=== PATIENT | male | born 1955 | race African-American/Black ===

== ENCOUNTER → 2020-04-10 | Outpatient (CLI) | payer BC, OTHER ==
[~2020-04-10] VITALS: Ht 180.3 cm; Wt 89.8 kg
[~2020-04-10] MED LIST: ASA81BEC PO; ATORVASTATIN CA80 MG PO; BIKTARVY 50-201 EACH PO; CHANTIX1 EACH PO; FLEXERIL PO; FLOMAX0.4 MG PO; OMEPRAZOLE40 MG PO; PREGABALIN150 MG PO; SENNA PLUS 8.61 EACH PO; TOPROL XL25 MG PO; TRAMADOL 50 MG50 MG PO
[2020-04-10 13:06] VITALS: BP 107/64
--- NOTE | 2020-04-10 13:39 | NUR ---
Pain Clinic Assessment: 1. History of Osteoarthritis: SPINE History of Rheumatoid Arthritis: Not Applicable 2. Height: 5 ft. 11 in. 180.3 cm. Weight: 198.0 lb. oz. 89.812 kg. Patient's BMI: 27.6 3. Vital Signs: BP: 107/64 Pulse: 66 Resp: 16 Temp: 02 Sat: 94 ECG Mon: 4. Pain Intensity: 9 5. Fall Risk: Dizziness: N Needs help standing or walking: Y Fallen in the last 3 months: Y Fall risk comments: LEFT LEG GIVES OUT 6. Patient on Blood Thinner: None 7. History of Hypertension: Y 8. Opioid Therapy greater than 6 weeks: N Opiate Contract Signed: 9. Risk Assessment Tool Provided: HIGH 10. Functional Assessment Tool: 57/70 11. Recreational Drug Use: Never Drug Type: Tobacco Use: Never Smoker Tobacco Type: Amount or Packs/day: How Many Years: Alcohol Use: No Frequency: Quant:
--- NOTE | 2020-04-11 14:53 | HPC ---
[facility] [address] [place] [address] PAIN MANAGEMENT CONSULTATION Name: ELLIOTT GONSALVES [facility] [id number] Admission: 04/10/20 Attend Phys: Manny Og DO Discharge: Date of : 57 Report #: [id number] THIS REPORT FOR: cc: KIERA HARVEY Physician not on staff Manny Og DO ~ HISTORY OF PRESENT ILLNESS: As you know, the patient is a 64-year-old male who reports longstanding history of low back pain, left lower extremity pain with paresthesias. He states pain began 04/2018. He denies specific injury or trauma. The patient underwent surgery in 2019 at [facility] with fusion from L2 through S1. There was instrumentation. Apparently, he was left with what was believed to be nerve injury causing foot drop on the left. He apparently had lumbar epidural injections prior to surgery, but none were beneficial. He sought evaluation with the pain management service at [facility] and advised that a spinal cord stimulator might be an option for treatment, but they do not offer that procedure at their current location and the patient was subsequently referred to our clinic to discuss this option. The patient indicates his pain is continuous, steady and constant. He describes the pain as burning, shooting, aching, gnawing, throbbing, sharp, stabbing, numbness and tingling. Places current pain score 9/10, daily average at 9/10, worst pain has been is 10/10. The patient states pain is exacerbated with walking, sitting, standing, improves with lying down. He is currently taking Lyrica and tramadol and noting minimal benefit with their use. The patient has undergone physical therapy multiple times, this is prior to and after surgery. He has undergone interventional treatments prior to surgery, but none after surgery. He is continued on medication management for neuropathic pain control. He utilizes an AFO for his left foot due to a drop foot. The patient reports that he has undergone EMG of the lower extremity, but that is not available to us at this point. He has been referred to our service to discuss treatment options for lumbar radicular symptoms, unresolved with surgery and medication management. PAST MEDICAL HISTORY: 1. Rheumatic fever. 2. History of chronic obstructive pulmonary disease. 3. Coronary artery disease. 4. Degenerative joint disease. 5. Osteoarthritis. 6. Chronic lumbar radiculopathy. PAST SURGICAL HISTORY: 1. Drainage of a right upper lung lobe. 2. Right upper lung lobectomy. 3. Port-A-Cath placement. 4. Fusion of the lumbar spine, L2 through S1. 5. Right wrist surgery. [address] [address] PAIN MANAGEMENT CONSULTATION Name: MAJORELLIOTT L Room #: REG [facility] Anika#: [id number] Admission: 04/10/20 Attend Phys: Manny Og DO Discharge: Date of : 57 Report #: [id number] 6. 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 7. Tonsillectomy. 8. Umbilical herniorrhaphy. SOCIAL HISTORY: The patient reports he does not smoke. Denies IV or illicit drug use. Denies any chronic alcohol use. 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 He is on short-term disability. He is not in litigation in regards to pain. He is not receiving workmen's compensation at this time. He is unaccompanied at today's visit. REVIEW OF SYSTEMS: Positive for weight gain, fatigue and weakness, frequent and recurrent headaches, wearing corrective eyewear, nosebleeds, shortness of breath walking or lying flat, heart trouble, chest pain with angina, frequent and recurrent coughs, loss of appetite, nocturia, change of force or stream urination, incontinence and dribbling to urine, sexual difficulty, numbness and tingling sensations, nervousness, depression. All other review of systems negative per 12-point review of systems other than those listed in history of present illness. Pain impact score 57/70, indicating severe interference of daily activities secondary to pain. ALLERGIES: PENICILLINS. CURRENT MEDICATIONS: Chantix as directed, cyclobenzaprine 10 mg once a day, tramadol 50 mg 4 times a day, omeprazole DR 40 mg once a day, tamsulosin 0.4 mg once a day, metoprolol 25 mg once a day, pregabalin 150 mg 2 tabs b.i.d., Senokot 1 tab per day, Biktarvy 50/200/25 once a day, atorvastatin 80 mg per day, aspirin 81 mg per day. IMAGING: MRI lumbar spine obtained 04/29/2019 shows T12-L1 unremarkable; L1-L2, mild disk bulge, minor facet arthropathy, xhou-xy-arbwuqdn bilateral neural foraminal narrowing; L2-L3 posterior decompression with L2-L3 laminectomies, bilateral L2-L3 pedicle fusion, rjti-hb-jjjzqfzd bilateral facet arthropathy, no central canal stenosis, yvwojicq-ee-ymudlu bilateral neural foraminal narrowing. L3-L4, posterior decompression, circumferential disk bulge, slightly eccentric to the left, subtle annular defect, encroachment upon the left neural foramen, severe facet arthropathy with partial ankylosis, severe left and xdunevyp-jl-uzhspm right neural foraminal narrowing. L4-L5, posterior decompression, small disk osteophyte complex, markedly severe facet degenerative changes with ankylosis, lolwpmdz-ex-ecommd neural foraminal narrowing bilaterally. L5-S1 transitional lumbosacral junction, severe bilateral facet arthropathy with partial ankylosis. No significant central canal stenosis, qjiq-gu-xdrsffbg neural foraminal narrowing. PHYSICAL EXAMINATION: [facility] [address] [place] [address] PAIN MANAGEMENT CONSULTATION Name: MAJORELLIOTT L Room #: REG [facility] Anika#: [id number] Admission: 04/10/20 Attend Phys: Manny Og DO Discharge: Date of : 57 Report #: [id number] VITAL SIGNS: Blood pressure 107/64, pulse 66, respiratory rate 16 and unlabored, patient is 94% on room air. Height 5 feet 11 inches tall, weight 198 pounds, BMI calculated 27.6. GENERAL: A well-developed, well-nourished, well-hydrated 64-year-old male appearing his stated age. He is in no acute distress, awake, alert and oriented x3. Current pain score is rated at 9/10. HEENT: Normocephalic, atraumatic. Pupils equal, round and reactive. The patient's speech is normal. He is wearing a face mask in compliance with COVID-19 regulations. LUNGS: Clear, no wheeze, rhonchi or rales. CARDIOVASCULAR: Regular. No appreciable gallop, no rub. ABDOMEN: Soft, nontender, nondistended. EXTREMITIES: Show no clubbing, no cyanosis, no edema. MUSCULOSKELETAL: Lower extremity strength is symmetrical 5/5 except for left quadriceps and plantar and dorsiflexion of the left foot, all rated at 3-5/10. Anterior tibialis seems to be the most affected. There is no significant atrophy noted in the musculature of the lower extremities. He is intact to light touch from L1 through S2 dermatomes. Seated straight leg raising negative. Supine straight leg raising positive on the left. Rip's test is negative. Modified Gaenslen's positive for axial low back pain. Ankle clonus negative. Babinski is negative. ASSESSMENT: 1. Symptomatic lumbar radiculopathy. 2. Neurogenic claudication of the left lower extremity. 3. 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 4. Chronic intractable pain. PLAN: 1. Based on today's physical exam and history the patient has provided, the description the patient uses in regards to pain as well as location of symptoms, it would appear that the patient is suffering from multiple lumbar radicular symptoms. The highest of the levels appears to be the L3 level on the left with involvement of L5 on S1 on the left. We have reviewed the patient's MRI, which shows severe neural foraminal stenosis at L3-L4 consistent with the highest level of his symptoms. There is also foraminal stenosis noted at L4-L5 and L5-S1. The patient has been advised that he has suffered a nerve root injury that has led to drop foot, though it does not appear that the neural foramen has been at all addressed from a stenosis standpoint and part of his symptoms may be related to the fact that he has severe neural foraminal stenosis. The patient has been back to see Neurosurgery. They have advised no further surgical options. They have advised him that he is to seek other treatment options. Given the findings of the physical exam and the findings of his lumbar spine, I do not feel he has completed surgical options, though if they feel he is not a candidate at this time, we did discuss other treatment options and the following was discussed with the patient today. [address] [address] PAIN MANAGEMENT CONSULTATION Name: ELLIOTT GONSALVES Room #: REG [facility] Donaldson#: [id number] Admission: 04/10/20 Attend Phys: Manny Og DO Discharge: Date of : 57 Report #: [id number] We discussed physical therapy, stretching exercise, core strengthening and a concerted effort at utilizing the left lower extremity with specifically plantar flexion and dorsiflexion of the foot along with strengthening of the quadriceps muscle on the left. We discussed medication management with suggestions of additional treatment to his neuropathic medications. This could be supplemented with duloxetine, nortriptyline, and amitriptyline as possible treatment additions. Antiseizure medication such as oxcarbazepine and carbamazepine could also be helpful. We discussed epidural injections under fluoroscopic guidance, which will provide minimal benefit as he has been decompressed centrally. The efficacy of epidural injections is not significantly noted to improve pain with severe neural foraminal stenosis. We discussed a spinal cord stimulator therapy, for which the patient was referred to our clinic and ultimately surgical decompression of the neural foramen. After reviewing risks and benefits of all proposed treatment options, the patient chose to move forward with evaluation for possible spinal cord stimulator. 2. The patient will be sent for psychiatric evaluation as part of the workup for spinal cord stimulators. He will begin the process immediately. We have given the names and the phone numbers of physicians who participate in our review program. The patient indicates he would like to see if one of his psychiatric physicians at [facility] might be able to provide a similar process. I did advise the patient this is a very specific set of testing that is required by Medicare and must be followed or we would not be able to obtain authorization. He will discuss this with his psychiatric physicians and determine if they offer that type of very specific testing. If they do not, he was given the names of those physicians that do provide the information we need to move forward with spinal cord stimulator trial, assuming he has no psychiatric issues concerning for undergoing the procedure. 3. No medication changes made at today's visit. The patient will continue current medical therapy as prior prescribed. 4. We plan to see the patient back in followup visit once we have achieved the psychiatric evaluation that is required for a spinal cord stimulator trial. Once we have reviewed the psychiatric evaluation and if there are no concerning findings, we would then move forward with the authorization process for spinal cord stimulator trial. The patient is agreeable with plan. 4. We will obtain the patient's EMG he underwent with Dr. Andres Dempsey. The patient recollects this was in 03/2020. We will obtain this EMG and determine the results of the findings and discuss that with the patient. Based on the findings of physical exam today, it would appear that his symptoms are related to chronic lumbar radiculopathy and that the drop foot may actually be due to some unresolved stenotic changes. We will review that EMG and try to correlate to the MRI, which shows severe neural foraminal stenosis at multiple levels on the left. 5. We wish to thank the referring physician, Dr. Rose Gordon for the opportunity to see this patient in consultation. We will keep you apprised of his response to treatment as we address lumbar radicular symptoms with possible [address] [address] PAIN MANAGEMENT CONSULTATION Name: ELLIOTT GONSALVES Room #: REG [facility] Donaldson#: [id number] Admission: 04/10/20 Attend Phys: Manny Og DO Discharge: Date of : 57 Report #: [id number] trial of a spinal cord stimulator. Again, we wish to thank you for the opportunity to see this patient in consultation. <ELECTRONICALLY SIGNED> By: Manny Og DO 04/11/20 [id number] Manny Og DO /nt
== END ==
LOC: PAIN 06:55
PROVIDERS: ATTEND Anesthesiology Pain Medicine
DX: M54.16 Radiculopathy, lumbar region (principal); R29.818 Other symptoms and signs involving the nervous system; M48.061 Spinal stenosis, lumbar region without neurogenic claudication; G89.29 Other chronic pain; Z88.8 Allergy status to other drugs, medicaments and biological substances; Z79.899 Other long term (current) drug therapy